=== PATIENT | female | born 1950 | race Caucasian/White ===

== ENCOUNTER → 2025-02-03 08:11 | Outpatient (REF) | payer OTHER, SELFPAY | LOC: PAVMRI 08:11 | PROVIDERS: ATTENDING PHYSICIAN Family Medicine; REFERRING PHYSICIAN Physical Medicine & Rehabilitation | DX: M54.30 Sciatica, unspecified side (principal); G57.01 Lesion of sciatic nerve, right lower limb; M53.3 Sacrococcygeal disorders, not elsewhere classified; G89.29 Other chronic pain; M46.1 Sacroiliitis, not elsewhere classified | CPT/HCPCS: 72148; 73721 ==